=== PATIENT | female | born 1995 | race Two or more races ===

== ENCOUNTER 2024-09-17 19:22 | Emergency (ER) | payer MEDICAID, SELFPAY ==
[2024-09-17 19:23] VITALS: BMI 18.7
[2024-09-17 19:41] VITALS: BP 103/70; PULSE 70; RESP 18; TEMP 37.3; O2SAT 98
--- NOTE | 2024-09-17 19:57 | PD.EDRME ---
Rapid Medical Screening Exam RME Arrival date/time: 09/17/24 19:22 Chief Complaint: Abdominal Pain Time Seen by Provider: 09/17/24 19:46 Vital signs: Vital Signs Temperature 99.1 F 09/17/24 19:41 Pulse Rate 70 09/17/24 19:41 Respiratory Rate 18 09/17/24 19:41 Blood Pressure 103/70 09/17/24 19:41 Pulse Oximetry (%) 98 09/17/24 19:41 Oxygen Delivery Method Room Air 09/17/24 19:41 Vital signs reviewed by provider: Yes RME Narrative: 29-year-old female presents to the ED with complaint of intermittent right lower quadrant abdominal pain x 2 days. She has no associated fever or chills, nausea or vomiting, diarrhea or constipation.
--- NOTE | 2024-09-17 20:01 | XR_ITS ---
Examination: Pelvic ultrasound, transabdominal, complete Technique: Transabdominal ultrasound of the pelvis performed using grayscale imaging Date and time of exam: September 17, 20242057 hours INDICATION: Bilateral abdominal pain pelvic pain beginning 2 days ago FINDINGS: Uterus 6.8 cm endometrial stripe 1.7 cm No uterine mass or intrauterine gestation Right ovary 3.1 cm arterial flow Left ovary 3.3 cm arterial flow IMPRESSION: Negative examination
--- NOTE | 2024-09-17 20:09 | XR_ITS ---
Examination: Abdomen sonogram, Limited Date and time of exam: September 17, 2024 at 20 0058 hours INDICATIONS: Bilateral abdominal pain beginning 2 days ago Technique: Real-time lopez scale transabdominal sonographic images of the upper abdomen obtained. Findings: No sonographic visualization appendix IMPRESSION: No sonographic visualization appendix
[2024-09-17 20:25] LABS: Basophils # (Auto) 0.1 Thou/mm3 (0.0-0.2); Basophils % (Auto) 1 % (0-2.5); Eosinophils # (Auto) 0.1 Thou/mm3 (0.0-0.5); Eosinophils % (Auto) 2 % (0-10); Hematocrit 33.2 % (36.0-46.0); Hemoglobin 11.8 g/dL (12.0-16.0); Immature Granulocytes % (Auto) 0 % (0-0); Immature Granulocytes Auto 0.01 Thou/mm3 (0.00-0.00); Lymphocytes # (Auto) 2.1 Thou/mm3 (1.0-4.8); Lymphocytes % (Auto) 36 % (10-50); Mean Corpuscular HGB Conc 35.5 g/dl (31.0-37.0); Mean Corpuscular Hemoglobin 28.4 pg (25.0-35.0); Mean Corpuscular Volume 80 fL (80-100); Monocytes # (Auto) 0.6 Thou/mm3 (0.0-0.8); Monocytes % (Auto) 10 % (0-12); Neutrophils % (Auto) 51 % (37-80); Nucleated Red Blood Cell % 0 /100 WBC (0); Platelet Count 276 Thou/mm3 (140-440); RDW Standard Deviation 37.1 fL (36.4-46.3); Red Blood Count 4.15 Miln/mm3 (4.00-5.20); White Blood Count 5.9 Thou/mm3 (3.6-11.0)
[2024-09-17 20:44] LABS: Collection Type, Urine Clean Catch
[2024-09-17 20:50] LABS: Bilirubin,Urine Negative (Negative); Blood,Urine 1+ (Negative); Clarity,Urine Clear (Clear/Hazy); Color,Urine Colorless (Lt Yel-Yel); Glucose, Urine Negative (Negative); Ketones,Urine Negative (Negative); Leukocyte Esterase,Urine Negative (Negative); Nitrite,Urine Negative (Negative); Protein,Urine Negative (Neg - Trace); RBC,Urine 1 /hpf (0-3); Specific Gravity,Urine 1.011 (1.001-1.035); Squamous Epithelial Cell,Urine 2 /hpf (0-5); Urobilinogen,Urine Negative mg/dL (0.0-1.0); WBC,Urine < 1 /hpf (0-5)
[2024-09-17 21:18] LABS: HCG Qualitative,Urine Negative
[2024-09-17 22:41] LABS: Alanine Aminotransferase 18 U/L (10-49); Albumin, Serum 4.7 gm/dL (3.5-5.0); Albumin/Globulin Ratio 1.6 (1.2-2.2); Alkaline Phosphatase 66 U/L (46-116); Anion Gap 6 (7-16); Aspartate Amino Transferase 26 U/L (0-34); BUN/Creatinine Ratio 11 Ratio (12-20); Bilirubin,Total 0.5 mg/dL (0.3-1.2); Blood Urea Nitrogen 8 mg/dL (9-23); Calcium 9.7 mg/dL (8.3-10.6); Calcium (Corrected) 9.7 mg/dL (8.5-10.1); Carbon Dioxide 26.8 mMol/L (20.0-31.0); Chloride 103 mMol/L (98-107); Creatinine (Component) 0.7 mg/dL (0.6-1.3); Estimated Creatinine Clearance 82.3 mL/min (>60); Globulin 2.9 gm/dL (2.3-3.5); Glucose 60 mg/dL (74-106); Lipase 52 U/L (12-53); Osmolality,Calculated 268 (275-295); Potassium 3.5 mMol/L (3.4-5.1); Sodium 136 mMol/L (136-145); Total Protein 7.6 gm/dL (5.7-8.2); eGFR > 60 See Note
[2024-09-17 23:02] LABS: Amylase 96 U/L (30-118)
[2024-09-18 00:03] VITALS: BP 128/72; PULSE 76; RESP 16; TEMP 37; O2SAT 98
--- NOTE | 2024-09-18 00:06 | EDNOTE_ITS ---
ED Abdominal Pain RME/HPI General Chief Complaint: Abdominal Pain Stated complaint: RLQ PAIN X 2DAYS Time seen by provider: 09/17/24 19:46 Arrival date/time: 09/17/24 19:22 RME / HPI RME / HPI narrative: 29-year-old female presents to the ED with complaint of intermittent right lower quadrant abdominal pain that radiates down to the right thigh x 2 days. She has no associated fever or chills, nausea or vomiting, diarrhea or constipation. Dr. Manley?s Main ED Evaluation: 29 y/o female presents to ED c/o RLQ abdominal pain x 2.5 days. Patient states her pain that radiates down to the right thigh. Patient reports some dysuria on the first day. Per , patient slipped in mud at work. LMP was 08/25/24. Denies any cough, diarrhea, constipation, chest pain, shortness of breath, fever, chills or any other associated symptoms. No known allergies. Related Data Previous Rx's ?Medication ?Instructions ?Recorded acetaminophen 500 mg capsule 1,000 mg (2 x 500 mg) PO Q6H PRN 09/17/24 pain #30 caps ibuprofen 600 mg tablet 600 mg PO Q6H PRN pain #20 t abs 09/17/24 Allergies Allergy/AdvReac Type Severity Reaction Status Date / Time No Known Allergies Allergy Verified 09/17/24 19:25 Review of Systems Review of Systems Systems Reviewed: All systems reviewed, normal except as documented Past Medical History Social History SMOKING STATUS: Never smoker ED Exam Narrative Physical exam: GENERAL APPEARANCE: alert and oriented x 4, well-developed, well-nourished, no acute distress VITALS: All vitals were reviewed and the pulse ox is 98% on room air, which is normal according to my interpretation. HEENT: Normocephalic, atraumatic; pupils equal, round, reactive to light; EOMI; mucous membranes pink, moist; oropharynx clear NECK: Supple LUNGS: CTABL; no wheezes, no rales, no rhonchi HEART: Regular rate, regular rhythm; normal S1, S2; no murmurs ABDOMEN: non distended; normal BS; soft, no tenderness, no guarding, no rebound; no masses, no organomegaly, no hernia BACK: no CVA tenderness EXTREMITIES: atraumatic; no edema NEUROLOGIC: awake; alert and oriented x4; cranial nerves II-XII grossly intact; no focal sensory or motor deficits PSYCHIATRIC: appropriate mood and affect SKIN: warm, dry, normal color; no rashes Course Quality Measures none Orders Category Date Time Status NPO STAT Care 09/17/24 20:01 Completed US abdomen limited Stat Exams 09/17/24 20:09 Completed US pelvic complete Stat Exams 09/17/24 20:01 Completed Amylase Stat Lab 09/17/24 20:05 Completed CBC Stat Lab 09/17/24 20:05 Completed Comprehensive Metabolic Panel Stat Lab 09/17/24 20:05 Completed HCG Qualitative,Urine Stat Lab 09/17/24 20:28 Completed Lipase Stat Lab 09/17/24 20:05 Completed Urinalysis Stat Lab 09/17/24 20:28 Completed Ketorolac Inj [Toradol Inj] Med 09/18/24 00:41 Discontinued 30 mg IM X1 ONE Vital Signs Vital signs: Vital Signs Temperature 99.1 F 09/17/24 19:41 Pulse Rate 70 09/17/24 19:41 Respiratory Rate 18 09/17/24 19:41 Blood Pressure 103/70 09/17/24 19:41 Pulse Oximetry (%) 98 09/17/24 19:41 Oxygen Delivery Method Room Air 09/17/24 19:41 Abdominal Pain MDM MDM Narrative MDM Narrative:: Scribe Attestation: IFlorinda, am scribing for and in the presence of Dr. Manley. Provider Notation: Although this document has been carefully reviewed, there may still be some phonetic and other typographical errors.? These errors are purely grammatical due to imperfections in the software program and should not be construed in any way to? compromise the substance of the patient's medical care during this visit. Patient data External records reviewed:: [facility] previous records (No prior ED records available for review.) Clinical information provided by:: patient and spouse () Social determinants that could affect healthcare access:: none Patient has the following chronic illnesses:: None reported How is presenting disease/condition affected by chronic disease/condition?: no chronic disease Evaluation data The following diagnostics were reviewed and interpreted by me:: lab results and radiology exam(s) Lab and/or radiology exams considered but not ordered:: None Interpretation Summary: LABS UA shows Blood 1+. Hematology: Hgb 11.8, Hct 33.2%. Chemistry: Anion Gap 6, BUN 8, BUN/Creatinine 11, Glucose 60, Osmality 268. RADIOLOGY Abdomen US: Patient: LIANA SÁNCHEZ Med. Record#: [id number] Birthdate: 1995 Age/Sex: 29 / F Location: [facility] Attending Dr: Ordering Physician: Jennifer Keenan PA-C Date of Service: 09/17/24 Procedure(s): US abdomen limited Accession Number(s): [id number] cc: Jeff Velazquez MD; Madhu Mendes MD; Jennifer Keenan PA-C~ Examination: Abdomen sonogram, Limited Date and time of exam: September 17, 2024 at 20 0058 hours INDICATIONS: Bilateral abdominal pain beginning 2 days ago Technique: Real-time lopez scale transabdominal sonographic images of the upper abdomen obtained. Findings: No sonographic visualization appendix IMPRESSION: No sonographic visualization appendix Dictated By: Madhu Mendes MD Signed By: <Electronically signed by Madhu Mendes MD in OV> 09/17/242141 Pelvis US: Patient: LIANA SÁNCHEZ Med. Record#: [id number] Birthdate: 1995 Age/Sex: 29 / F Location: [facility] Attending Dr: Ordering Physician: Jennifer Keenan PA-C Date of Service: 09/17/24 Procedure(s): US pelvic complete Accession Number(s): [id number] cc: Jeff Velazquez MD; Madhu Mendes MD; Jennifer Keenan PA-C~ Examination: Pelvic ultrasound, transabdominal, complete Technique: Transabdominal ultrasound of the pelvis performed using grayscale imaging Date and time of exam: September 17, 2024 2058 hours INDICATION: Bilateral abdominal pain pelvic pain beginning 2 days ago FINDINGS: Uterus 6.8 cm endometrial stripe 1.7 cm No uterine mass or intrauterine gestation Right ovary 3.1 cm arterial flow Left ovary 3.3 cm arterial flow IMPRESSION: Negative examination Dictated By: Madhu Mendes MD Signed By: <Electronically signed by Madhu Mendes MD in OV> 09/17/241 Medications / Prescriptions Medications or Prescriptions considered but not ordered:: None Medication administrations:: Medication Administration History Discontinued Medications Ketorolac Tromethamine (Ketorolac Inj 60 Mg/2 Ml Vial) 30 mg IM X1 ONE Stop: 09/18/24 00:42 See above if any Consultations Consultation(s) initiated? (list below): No Diagnosis Differential diagnosis abdominal pain: abdominal pain, calculus of kidney, endometriosis and other (UTI vs Sciatica vs Muscle strain vs Renal calculi) Most likely diagnosis given after review of the tests above:: See clinical impression below Admission Indicated Admission indicated?: not indicated Explain why admission is indicated or not indicated:: Patient has no emergent abnormalities in their studies and can be managed on an outpatient basis. Admission Request Was there a request for admission?: No Disposition Plan Disposition Plan: Discharge Discharge Attestation Discharge Attestation: The patient and all family members were given an opportunity to ask questions and understood the discharge instructions. Discharge instructions specifically effects, indications for sooner follow up or return to the emergency department, and the expected course of current diagnosis. Patient condition: Stable Discharge Plan Plan Patient Disposition: Elopement Discharge Disposition comment: Stable for discharge home Patient condition on transfer: Stable Prescriptions/Referrals Prescriptions/Med Rec: New ibuprofen 600 mg tablet 600 mg PO Q6H PRN (Reason: pain) Qty: 20 0RF acetaminophen 500 mg capsule 1,000 mg PO Q6H PRN (Reason: pain) Qty: 30 0RF Referrals: [facility] [Provider Group] - In 1 week Jeff Velazquez MD [Primary Care Provider] - In 1 week Problem List Clinical Impression: Acute right lower quadrant pain, Muscle strain Patient/Caregiver Discharge Instructions Discharge Activity: activity as tolerated Education Materials: Abdominal Pain, ED Muscle Strain, Abdomen, ED Muscle Strain, Extremity Additional Instructions: Please return to the emergency department if you have any worsening or any further medical problems and we will help you. Otherwise you should follow-up with your primary care doctor or in the family health care clinic within the next several days Print Language: [place] Stand Alone Forms: [facility] Award Info., Patient Portal Info Letter
--- NOTE | 2024-09-18 01:10 | PC.NURSE ---
no answer x 1 at 0108. checked outside and lobby.
--- NOTE | 2024-09-18 01:37 | PC.NURSE ---
no answer x 2 at 0135. checked outside and lobby.
== END 2024-09-18 00:04 | disposition left against medical advice (07) ==
PROVIDERS: Physician Assistant; Emergency Provider Emergency Medicine; PCP Internal Medicine
DX: S39.011A Strain of muscle, fascia and tendon of abdomen, initial encounter (principal); R10.2 Pelvic and perineal pain; X58.XXXA Exposure to other specified factors, initial encounter
CPT/HCPCS: 36415; 76705; 76856; 80053; 81001; 81025; 82150; 83690; 85025; 99281